=== PATIENT | male | born 1985 | race Caucasian/White ===

== ENCOUNTER 2018-07-25 14:19 | Emergency (ER) | payer OTHER ==
[~2018-07-25] VITALS: Ht 180.3 cm; Wt 120.5 kg
[~2018-07-25 14:19] MED LIST: ALBU8.5H8 IH; CYCL-1 PO; LEVA15HF4 IH; PHEN118S9 PO; PROM25TA14 PO; ZOF4T PO
[2018-07-25 15:00] VITALS: BP 150/99
== END 2018-07-25 15:02 | disposition home or self-care (01) ==
LOC: ER 14:20
DX: L72.3 Sebaceous cyst (principal); E11.9 Type 2 diabetes mellitus without complications; J45.909 Unspecified asthma, uncomplicated; G89.29 Other chronic pain; Z86.14 Personal history of Methicillin resistant Staphylococcus aureus infection; Z98.890 Other specified postprocedural states; Z88.5 Allergy status to narcotic agent; Z79.899 Other long term (current) drug therapy; Z60.2 Problems related to living alone
CPT/HCPCS: 99281

== ENCOUNTER → 2021-05-25 | Emergency (ER) | payer SELFPAY ==
[~2021-05-25] VITALS: Ht 182.9 cm; Wt 118.2 kg
[~2021-05-25] MED LIST changes: +ALBU8.5H17 IH; -ALBU8.5H8 IH; +LIDOcaine 1% 30ml preserv. free vial IJ ONE; +PHEN118S47 PO; -PHEN118S9 PO
[2021-05-25 17:56] VITALS: BP 123/59
== END | disposition left against medical advice (07) ==
LOC: ER 17:09
DX: S61.512A Laceration without foreign body of left wrist, initial encounter (principal); J45.909 Unspecified asthma, uncomplicated; E11.9 Type 2 diabetes mellitus without complications; G89.29 Other chronic pain; Z88.0 Allergy status to penicillin; M54.9 Dorsalgia, unspecified; W26.0XXA Contact with knife, initial encounter; Y93.89 Activity, other specified; Y92.89 Other specified places as the place of occurrence of the external cause; Y99.8 Other external cause status; Z88.5 Allergy status to narcotic agent; Z79.899 Other long term (current) drug therapy
CPT/HCPCS: 99281

== ENCOUNTER 2022-01-25 21:42 | Emergency (ER) | payer SELFPAY ==
[~2022-01-25] VITALS: Ht 180.3 cm; Wt 109.1 kg
[~2022-01-25 21:42] MED LIST changes: -LIDOcaine 1% 30ml preserv. free vial IJ ONE
[2022-01-25] MEDS ORDERED: ketorolac trometh inj. 60 MG/2 ML VIAL IM ONE ×2 (22:25→23:40)
[2022-01-25] MEDS ORDERED: CefTRIAXone 1000mg IM Kit (w/lidocaine diluent) IM ONE ×2 (23:25→23:40)
[2022-01-25] MEDS ORDERED: CefTRIAXone 500MG IM Kit w/LIDOcaine IM ONE (23:25)
[2022-01-25] MEDS ORDERED: KETO10TA2 PO (23:26)
[2022-01-25] MEDS ORDERED: DOXY100C76 PO (23:26)
[2022-01-25] MEDS ORDERED: HYDR-3965 PO (23:26)
[2022-01-25 23:52] VITALS: BP 132/87
== END 2022-01-25 23:53 | disposition home or self-care (01) ==
LOC: ER 21:43
DX: R10.31 Right lower quadrant pain (principal); N45.1 Epididymitis; J45.909 Unspecified asthma, uncomplicated; E11.9 Type 2 diabetes mellitus without complications; G89.29 Other chronic pain; Z86.14 Personal history of Methicillin resistant Staphylococcus aureus infection; Z98.890 Other specified postprocedural states; Z60.2 Problems related to living alone; Z88.5 Allergy status to narcotic agent; Z79.2 Long term (current) use of antibiotics; Z79.899 Other long term (current) drug therapy
CPT/HCPCS: 76705; 76870; 93976; 96372; 99284; J0696; J1885

== ENCOUNTER 2022-01-30 00:40 | Emergency (ER) | payer OTHER ==
[~2022-01-30] VITALS: Ht 180.3 cm; Wt 109.1 kg
[~2022-01-30 00:40] MED LIST changes: +DOXY100C76 PO; +HYDR-3965 PO; +KETO10TA2 PO
[2022-01-30 00:46] VITALS: BP 153/98
[2022-01-30] MEDS ORDERED: ketorolac trometh inj. 60 MG/2 ML VIAL IM ONE (01:30)
[2022-01-30] MEDS ORDERED: acetaminophen 325mg tablet PO ONE (01:30)
== END 2022-01-30 02:30 | disposition home or self-care (01) ==
LOC: ER 00:41
DX: R10.31 Right lower quadrant pain (principal); N50.811 Right testicular pain; J45.909 Unspecified asthma, uncomplicated; E11.9 Type 2 diabetes mellitus without complications; G89.29 Other chronic pain; Z87.81 Personal history of (healed) traumatic fracture; Z86.14 Personal history of Methicillin resistant Staphylococcus aureus infection; Z98.890 Other specified postprocedural states; Z88.6 Allergy status to analgesic agent; Z79.2 Long term (current) use of antibiotics; Z79.899 Other long term (current) drug therapy
CPT/HCPCS: 96372; 99283; J1885

== ENCOUNTER 2022-05-24 19:49 | Emergency (ER) | payer SELFPAY ==
[~2022-05-24 19:49] MED LIST changes: -DOXY100C76 PO; -HYDR-3965 PO
== END 2022-05-24 21:08 | disposition left against medical advice (07) ==
LOC: ER 19:50
DX: J00 Acute nasopharyngitis [common cold] (principal); Z53.21 Procedure and treatment not carried out due to patient leaving prior to being seen by health care provider